=== PATIENT | female | born 1950 | race Caucasian/White ===

== ENCOUNTER → 2019-03-05 09:12 | Day surgery (SDC) | payer MEDICARE, BC ==
[~2019-03-05 09:12] MED LIST: Buffered Lidocaine 1% SYRIN* 1 ML/SYRINGE INTRADERM ONE; Cyclopentolate 1% OPTH.SOL* 2 ML BTL ONE; Ketorolac 0.5% OPHTH (NF) 0.5 % 5 ML BTL ONE; Lidocaine 1% MPF ** 5 ML VIAL ONE; Midazolam* 1 MG/ML 2 ML VIAL (2 MG) ONE; Neomycin/Polymy/Dex OPHTH.OIN* 3.5 GM ONE; Phenylephrine OPHTH SOL 2.5%* 2 ML ONE; Tetracaine 0.5% OPTH.SOL 4 ML* 1 DROP BTL ONE; Tropicamide 1% OPTH.SOL* BTL ONE
[2019-03-05 13:55] VITALS: BP 119/66
--- NOTE | 2019-03-05 14:49 | OP ---
DATE OF OPERATION/DATE OF DICTATION: 03/05/2019 - [facility] DATE OF : 1950. SURGEON: Dr. Federico Fuller. VEGETABLE SPECKER: None. ANESTHESIA: Topical with intravenous sedation. PRE-OP DIAGNOSIS: Cataract, left eye. POST-OP DIAGNOSIS: Cataract, left eye. OPERATIVE PROCEDURE: Phacoemulsification and cataract extraction with posterior chamber intraocular lens implant, left eye. COMPLICATIONS: None. BLOOD LOSS: None. DESCRIPTION OF PROCEDURE: The patient was brought to the operating room and received a small amount of intravenous sedation. A drop of Tetracaine was placed in her left eye. She was prepped and draped in the usual sterile fashion for ophthalmic surgery and attention was directed to the left eye where a speculum was placed. A paracentesis was created at the 5 o'clock position and 0.1 cc of 1 percent preservative-free Lidocaine was injected into the anterior chamber followed by DisCoVisc. The eye was digitally stabilized while a 2.75 mm keratome was used to create a triplanar clear corneal incision at the 3 o'clock position. A continuous curvilinear capsulorrhexis was created with a cystotome and Utrata forceps. BSS on a cannula was used to hydrodissect the lens from the capsule. Phacoemulsification was performed in a divide-and- conquer technique to create four fragments which were removed. Residual cortical material was removed with irrigation and aspiration. DisCoVisc was used to inflate the capsular bag and an AUOOTO 16.5 diopter lens was folded and inserted into the capsular bag. DisCoVisc was removed using irrigation and aspiration. BSS on a cannula was used to hydrate the corneal stroma and seal the wound. At the end of the case the pupil was round and the lens was centered. The eye was of normal pressure and the wound was water tight. The speculum was removed and topical Maxitrol ointment was placed on the surface of the eye. The eye was closed, patched and shielded and the patient was sent to the recovery room in stable condition with post operative instructions and follow-up appointment given. [id number] #: [id number] MTDD
== END | disposition home or self-care (01) ==
LOC: OREAST 09:12
PROVIDERS: ATTEND Ophthalmology
DX: H25.12 Age-related nuclear cataract, left eye (principal); G47.00 Insomnia, unspecified; Z85.3 Personal history of malignant neoplasm of breast; K21.9 Gastro-esophageal reflux disease without esophagitis; M48.07 Spinal stenosis, lumbosacral region; Z88.2 Allergy status to sulfonamides
CPT/HCPCS: A9270-GY; J2250; V2632

== ENCOUNTER → 2019-03-12 11:33 | Day surgery (SDC) | payer MEDICARE, BC ==
[~2019-03-12 11:33] MED LIST changes: +fentaNYL* 50 MCG/ML 2 ML VIAL (100 MCG VIAL) ONE
--- NOTE | 2019-03-12 15:57 | OP ---
DATE OF OPERATION/DATE OF DICTATION: 03/12/2019 - [facility] DATE OF : 1950. SURGEON: Dr. Federico Fuller. BALLISTICS EXPERT FORENSIC: None. ANESTHESIA: Topical with intravenous sedation. PRE-OP DIAGNOSIS: Cataract, right eye. POST-OP DIAGNOSIS: Cataract, right eye. OPERATIVE PROCEDURE: Phacoemulsification and cataract extraction with posterior chamber intraocular lens implant, right eye. COMPLICATIONS: None. BLOOD LOSS: None. DESCRIPTION OF PROCEDURE: The patient was brought to the operating room and received a small amount of intravenous sedation. A drop of Tetracaine was placed in her right eye. She was prepped and draped in the usual sterile fashion for ophthalmic surgery and attention was directed to the right eye where a speculum was placed. A paracentesis was created at the 11 o'clock position and 0.1 cc of 1 percent preservative-free Lidocaine was injected into the anterior chamber followed by DisCoVisc. The eye was digitally stabilized while a 2.75 mm keratome was used to create a triplanar clear corneal incision at the 9 o'clock position. A continuous curvilinear capsulorrhexis was created with a cystotome and Utrata forceps. BSS on a cannula was used to hydrodissect the lens from the capsule. Phacoemulsification was performed in a divide-and- conquer technique to create four fragments which were removed. Residual cortical material was removed with irrigation and aspiration. DisCoVisc was used to inflate the capsular bag and an AUOOTO 16.0 diopter lens was folded and inserted into the capsular bag. DisCoVisc was removed using irrigation and aspiration. BSS on a cannula was used to hydrate the corneal stroma and seal the wound. At the end of the case the pupil was round and the lens was centered. The eye was of normal pressure and the wound was water tight. The speculum was removed and topical Maxitrol ointment was placed on the surface of the eye. The eye was closed, patched and shielded and the patient was sent to the recovery room in stable condition with post operative instructions and follow-up appointment given. [id number] #: [id number] MTDD
[2019-03-12 17:35] VITALS: BP 120/67
== END | disposition home or self-care (01) ==
LOC: OREAST 11:33
PROVIDERS: ATTEND Ophthalmology
DX: H25.11 Age-related nuclear cataract, right eye (principal); Z85.3 Personal history of malignant neoplasm of breast; K21.9 Gastro-esophageal reflux disease without esophagitis
CPT/HCPCS: A9270-GY; J2250; J3010; V2632

== ENCOUNTER 2020-07-20 05:48 | Inpatient (IN) ==
[2020-07-20] MEDS ORDERED: Buffered Lidocaine 1% SYRIN 1 ml INTRADERM ONE ×2 (06:00→06:25)
[2020-07-20] MEDS ORDERED: Lactated Ringers 1000 ml BAG 1,000 ML IV SCH (06:00)
[2020-07-20] MEDS ORDERED: ceFAZolin 2 GM PREMIX 2 GM/50 ML BAG ONE (06:25)
[2020-07-20] MEDS ORDERED: Bacitracin INJECTION 50,000 UNITS ONE (06:54)
[2020-07-20] MEDS ORDERED: Lidocaine 1% w EPI 1:200,000 SDV 30 ML VIAL ONE (06:54)
[2020-07-20] MEDS ORDERED: Bupivacaine 0.25% SDV PF 10 ML VIAL INJ ONE (06:54)
[2020-07-20] MEDS ORDERED: Rocuronium 50 mg VIAL 10 mg/ml 5 ml VIAL (50 mg) ONE ×2 (06:55→11:58)
[2020-07-20] MEDS ORDERED: Lidocaine 2% PF 5 ML VIAL ONE (06:55)
[2020-07-20] MEDS ORDERED: Propofol 10 MG/ML 20 ML BTL ONE (06:55)
[2020-07-20] MEDS ORDERED: Ondansetron 4 mg VIAL 2 MG/ML 2 ml VIAL ONE ×2 (06:55→14:21)
[2020-07-20] MEDS ORDERED: Midazolam 2 mg/2 ml VIAL 1 mg/ml 2 ml VIAL (2 mg) ONE (06:55)
[2020-07-20] MEDS ORDERED: Dexamethasone IV 4 MG/ML VIAL 1 ml VIAL ONE ×2 (06:55→09:15)
[2020-07-20] MEDS ORDERED: fentaNYL 250 mcg/5 ml 50 MCG/ML 5 ml VIAL (250 MCG) ONE (06:56)
[2020-07-20] MEDS ORDERED: HYDROmorphone 1 MG/1 ML SYRINGE IV PRN (08:06)
[2020-07-20] MEDS ORDERED: Ondansetron 4 mg VIAL 2 MG/ML 2 ml VIAL IV PRN ×2 (08:06→14:24)
[2020-07-20] MEDS ORDERED: fentaNYL 100 mcg/2 ml 50 MCG/ML VIAL IV PRN (08:06)
[2020-07-20] MEDS ORDERED: Naloxone 0.4 mg VIAL 0.4 mg/ml 1 ml VIAL IV PRN (08:06)
[2020-07-20] MEDS ORDERED: Artificial Tear OPHTH.OINT 3.5 GM ONE (08:38)
[2020-07-20] MEDS ORDERED: EPHEDrine (Pressors) 50 MG/ML VIAL ONE ×2 (09:17→09:50)
[2020-07-20] MEDS ORDERED: ceFAZolin VIAL VIAL ONE (13:00)
[2020-07-20] MEDS ORDERED: HYDROmorphone 1 MG/1 ML SYRINGE ONE (13:22)
[2020-07-20] MEDS ORDERED: HYDROcodone/ACETAMIN 5/325 mg TAB PO PRN ×2 (14:24)
[2020-07-20] MEDS ORDERED: fentaNYL 100 mcg/2 ml 50 MCG/ML VIAL ONE (14:30)
[2020-07-20] MEDS ORDERED: HYDROmorphone 0.5 MG/0.5 ML SYRINGE IV SLOW PU PRN (20:00)
[2020-07-20] MEDS: Senna TAB 8.6 mg TAB PO SCH (20:24)
[2020-07-21 05:37] LABS: ABS Lymphocytes 1.8 10^3/ul (1.0-4.8); ABS Monocytes 0.8 10^3/ul (0-0.8); ABS Neutrophils 8.9 10^3/ul (1.5-7.7); Hematocrit 37 % (35-47); Hemoglobin 12.5 g/dL (12.0-16.0); Lymphocyte % 15.8 %; Mean Corpuscular HGB Conc 34 g/dL (31-36); Mean Corpuscular Hemoglobin 33 pg (27-31); Mean Corpuscular Volume 96 fL (80-97); Mean Platelet Volume 7.1 fL (7.4-10.4); Platelet Count 277 10^3/uL (150-450); Red Blood Count 3.85 10^6 /uL (3.70-4.87); Red Cell Distribution Width 14 % (10-15); White Blood Count 11.5 10^3/uL (3.5-10.8)
[2020-07-21] MEDS: oxyCODONE SR 20 mg TAB PO SCH (20:38)
[2020-07-21] MEDS: Senna TAB 8.6 mg TAB PO SCH (20:39)
[2020-07-22] MEDS: oxyCODONE SR 20 mg TAB PO SCH ×2 (09:04→20:03)
[2020-07-22] MEDS: Magnesium Hydroxide LIQ 30 ML UDC PO PRN ×2 (10:00→20:00)
[2020-07-22] MEDS: Senna TAB 8.6 mg TAB PO SCH (20:00)
[2020-07-23] MEDS: Calamine/Pramoxine LOTION 8%/1% 180 ML TOPICAL SCH ×2 (06:48→08:07)
[2020-07-23 07:25] VITALS: BP 123/68
[2020-07-23] MEDS: Magnesium Hydroxide LIQ 30 ML UDC PO PRN (08:57)
[2020-07-23] MEDS: oxyCODONE SR 20 mg TAB PO SCH (08:57)
== END 2020-07-23 12:30 | disposition home or self-care (01) | DRG 519 ==
LOC: OR 05:48 → SSU 14:24
PROVIDERS: ADMIT Neurological Surgery; ATTEND Neurological Surgery